=== PATIENT | male | born 1940 | race Caucasian/White ===

== ENCOUNTER 2017-04-22 10:36 | Emergency (ER) | payer MEDICAID, OTHER ==
[~2017-04-22] VITALS: Ht 185.4 cm; Wt 83.9 kg
[2017-04-22] MEDS ORDERED: SODIUM CHLORIDE 0.9% 1,000 ML IVB ONE (10:53)
[2017-04-22] MEDS ORDERED: MORPHINE SULFATE 4 MG/ML SYRG IV ONE (11:00)
[2017-04-22] MEDS ORDERED: ONDANSETRON HCL 4 MG/2 ML VIAL IV ONE ×3 (11:00→15:45)
[2017-04-22 11:10] LABS: CONDITION Y; Hemoglobin 15.2 g/dL (13.5-17.5); Mean Platelet Volume 8.1 fL (7.4-10.4); White Blood Cell 7.9 10^3/uL (4.4-10.8)
[2017-04-22 11:14] LABS: Basophils # (auto) 0 uL; Basophils % (auto) 0.3 % (0.0-2.0); Eosinophils # (auto) 0.2 uL; Eosinophils % (auto) 2.3 % (0.0-7.0); Lymphocytes # (auto) 1.8 uL; Lymphocytes % (auto) 22.9 % (10.0-50.0); Mean Corpuscular Hemoglobin 29.3 pg (28.0-32.0); Mean Corpuscular Hgb Conc. 33.7 g/dL (32.0-36.0); Mean Corpuscular Volume 87.1 fL (80.0-100.0); Monocytes # (auto) 0.5 uL; Monocytes % (auto) 6.2 % (0.0-12.0); Neutrophils # (auto) 5.4 uL; Neutrophils % (auto) 68.3 % (37.0-80.0); Platelet Count (auto) 208 10^3/uL (140-450); Red Cell Distribution Width 14.2 % (11.6-16.0)
[2017-04-22 11:33] LABS: Albumin 3.9 g/dL (3.4-5.0); Alkaline Phosphatase 101 U/L (45-117); Amylase 37 U/L (25-115); Anion Gap 10 (5-15); Aspartate Aminotransferase 22 U/L (15-37); BUN/Creatinine Ratio 22.9; Bilirubin, Total 0.5 mg/dL (0.2-1.0); Blood Urea Nitrogen 25 mg/dL (7-18); Calcium 9.1 mg/dL (8.5-10.1); Carbon Dioxide 21 mmol/L (21-32); Chloride 106 mmol/L (98-107); GFR African American 85 mL/min; GFR Non-African American 70 mL/min; Glucose 165 mg/dL (74-106); Potassium 4.2 mmol/L (3.5-5.1); Sodium 137 mmol/L (136-145); Total Protein 7.5 g/dL (6.4-8.2)
[2017-04-22] MEDS ORDERED: SODIUM CHLORIDE 0.9% 1,000 ML IV ONE ×2 (12:26)
[2017-04-22] MEDS ORDERED: ONDANSETRON HCL 4 MG/2 ML VIAL ONE ×2 (13:08→15:30)
[2017-04-22] MEDS ORDERED: KETOROLAC TROMETH 30 MG/ML 1ML VIAL ONE (13:08)
[2017-04-22] MEDS ORDERED: KETOROLAC TROMETH 30 MG/ML 1ML VIAL IV ONE (13:15)
[2017-04-22] MEDS ORDERED: HYDROmorphone HCL 2 MG/ML VL IV ONE ×2 (13:15→15:45)
[2017-04-22 13:49] LABS: Urine Bilirubin Negative (Negative); Urine Color Yellow (Yellow); Urine Glucose TRACE mg/dL (Normal); Urine Mucus FEW (None Seen); Urine Nitrite Negative (Negative); Urine RBC 219 /hpf (0 - 3); Urine Squamous Epithelial Cell FEW /hpf (<5); Urine Urobilinogen Normal (Negative)
[2017-04-22 13:50] LABS: Urine Blood 3+ /uL (Negative); Urine Ketone 1+ (Negative)
[2017-04-22 14:59] VITALS: BP 103/58
[2017-04-22] MEDS ORDERED: HYDROmorphone HCL 2 MG/ML VL ONE (15:30)
== END 2017-04-22 15:58 | disposition home or self-care (01) ==
LOC: ER 10:41
DX: N13.2 Hydronephrosis with renal and ureteral calculous obstruction (principal); E11.9 Type 2 diabetes mellitus without complications; Z90.49 Acquired absence of other specified parts of digestive tract
CPT/HCPCS: 36415; 74176; 80053; 81001; 82150; 83690; 84484; 85025; 93005; 96361; 96374; 96375; 96376; 99285; J1170; J1885; J2270; J2405; J7030

== ENCOUNTER 2021-01-20 19:51 | Emergency (ER) | payer OTHER ==
[~2021-01-20] VITALS: Ht 157.5 cm; Wt 95.3 kg
[2021-01-20] MEDS ORDERED: SODIUM CHLORIDE 0.9% 1,000 ML IV ONE (20:30)
[2021-01-20] MEDS ORDERED: ONDANSETRON HCL 4 MG/2 ML VIAL IV ONE (21:00)
[2021-01-20] MEDS ORDERED: fentaNYL CITRATE 100 MCG/2 ML VL IM ONE (21:00)
[2021-01-20] MEDS ORDERED: KETOROLAC TROMETH 30 MG/ML 1ML VIAL IV ONE (21:00)
[2021-01-20 21:50] LABS: Basophils # (auto) 0.1 10 ^3/uL (0-0.2); Basophils % (auto) 1.1 % (0.0-2.0); Eosinophils # (auto) 0.1 10 ^3/uL (0-0.8); Eosinophils % (auto) 1.3 % (0.0-7.0); Hematocrit 42.5 % (41.0-53.0); Hemoglobin 14.5 g/dL (13.5-17.5); Lymphocytes % (auto) 9.9 % (10.0-50.0); Mean Corpuscular Hemoglobin 29.6 pg (28.0-32.0); Mean Corpuscular Hgb Conc. 34.1 g/dL (32.0-36.0); Mean Corpuscular Volume 86.7 fL (80.0-100.0); Monocytes # (auto) 0.7 10 ^3/uL (0-1.3); Neutrophils # (auto) 8.3 10 ^3/uL (1.6-8.6); Neutrophils % (auto) 80.7 % (37.0-80.0); Nucleated Red Blood Cells % 0.1 %; Platelet Count (auto) 174 10^3/uL (140-450); Red Blood Cells 4.91 10^6/uL (4.5-5.90); Red Cell Distribution Width 14.9 % (11.8-14.3); White Blood Cell 10.2 10^3/uL (4.4-10.8)
[2021-01-20 22:03] LABS: Alanine Aminotransferase 44 U/L (16-61); Albumin 3.6 g/dL (3.4-5.0); Anion Gap 8 (5-15); Aspartate Aminotransferase 21 U/L (15-37); BUN/Creatinine Ratio 23.1; Blood Urea Nitrogen 21 mg/dL (7-18); Calcium 8.1 mg/dL (8.5-10.1); Carbon Dioxide 23 mmol/L (21-32); Chloride 109 mmol/L (98-107); GFR African American 104 mL/min; GFR Non-African American 86 mL/min; Glucose 111 mg/dL (74-106); Magnesium 2.1 mg/dL (1.6-2.6); Potassium 3.8 mmol/L (3.5-5.1); Sodium 140 mmol/L (136-145)
[2021-01-20 22:05] LABS: Urine Bacteria NONE SEEN /hpf (None Seen); Urine Blood 3+ /uL (Negative); Urine Specific Gravity 1.016 (1.001-1.035); Urine WBC 6 /hpf (0 - 3)
[2021-01-20 22:06] LABS: INR 1.05 (0.9-1.15)
[2021-01-20 22:07] LABS: Alkaline Phosphatase 95 U/L (45-117); Bilirubin, Total 0.4 mg/dL (0.2-1.0)
[2021-01-20 23:33] VITALS: BP 191/86
== END 2021-01-20 23:50 | disposition home or self-care (01) ==
LOC: ER 19:51 → EDBD 19:51 → ER 23:50
DX: N20.0 Calculus of kidney (principal); K40.90 Unilateral inguinal hernia, without obstruction or gangrene, not specified as recurrent; N13.4 Hydroureter; N04.9 Nephrotic syndrome with unspecified morphologic changes; E11.9 Type 2 diabetes mellitus without complications; E78.5 Hyperlipidemia, unspecified; F17.210 Nicotine dependence, cigarettes, uncomplicated; Z90.49 Acquired absence of other specified parts of digestive tract; Z88.6 Allergy status to analgesic agent
CPT/HCPCS: 36415; 74176; 80053; 81001; 83605; 83735; 84484; 85025; 85610; 96361; 96372; 96374; 96375; 99285; J1885; J2405; J3010; J7030; 93005

== ENCOUNTER 2021-04-21 18:00 | Emergency (ER) | payer OTHER ==
[~2021-04-21] VITALS: Ht 188 cm; Wt 90.7 kg
[2021-04-21] MEDS ORDERED: KETOROLAC TROMETH 30 MG/ML 1ML VIAL IV ONE (18:15)
[2021-04-21] MEDS ORDERED: SODIUM CHLORIDE 0.9% 1,000 ML IV ONE ×2 (18:15)
[2021-04-21 20:01] LABS: Urine Bacteria NONE SEEN /hpf (None Seen); Urine Blood 3+ /uL (Negative); Urine Specific Gravity 1.023 (1.001-1.035); Urine WBC 7 /hpf (0 - 3)
[2021-04-21 21:08] LABS: Basophils # (auto) 0.1 10 ^3/uL (0-0.2); Basophils % (auto) 0.5 % (0.0-2.0); Eosinophils # (auto) 0.1 10 ^3/uL (0-0.8); Eosinophils % (auto) 0.9 % (0.0-7.0); Hematocrit 39.7 % (41.0-53.0); Hemoglobin 13.5 g/dL (13.5-17.5); Lymphocytes % (auto) 8.4 % (10.0-50.0); Mean Corpuscular Hemoglobin 29.4 pg (28.0-32.0); Mean Corpuscular Hgb Conc. 34.1 g/dL (32.0-36.0); Mean Corpuscular Volume 86.3 fL (80.0-100.0); Monocytes % (auto) 8.4 % (0.0-12.0); Neutrophils # (auto) 9.4 10 ^3/uL (1.6-8.6); Neutrophils % (auto) 81.8 % (37.0-80.0); Red Blood Cells 4.61 10^6/uL (4.5-5.90); Red Cell Distribution Width 15.3 % (11.8-14.3); White Blood Cell 11.6 10^3/uL (4.4-10.8)
[2021-04-21 21:26] LABS: Calcium 7.5 mg/dL (8.5-10.1); Chloride 112 mmol/L (98-107); Potassium 3.8 mmol/L (3.5-5.1); Sodium 141 mmol/L (136-145)
[2021-04-21 21:30] LABS: Alanine Aminotransferase 33 U/L (16-61); Albumin 3.4 g/dL (3.4-5.0); Anion Gap 7 (5-15); Aspartate Aminotransferase 16 U/L (15-37); BUN/Creatinine Ratio 18.3; Blood Urea Nitrogen 20 mg/dL (7-18); Carbon Dioxide 22 mmol/L (21-32); GFR African American 84 mL/min; GFR Non-African American 70 mL/min; Glucose 111 mg/dL (74-106)
[2021-04-21 21:34] LABS: Alkaline Phosphatase 99 U/L (45-117); Bilirubin, Total 0.4 mg/dL (0.2-1.0); Total Protein 6.5 g/dL (6.4-8.2)
[2021-04-21] MEDS ORDERED: CALCIUM GLUC IV ONE (22:30)
[2021-04-21] MEDS ORDERED: [UNRECOGNIZED DRUG - OTHER] IV ONE (22:30)
[2021-04-21] MEDS ORDERED: CALCIUM GLUC 1,000mg/50ml-NS 100 ML IV ONE (23:32)
[2021-04-21] MEDS ORDERED: MORPHINE SULFATE 4 MG/ML SYR/VIAL IV ONE (23:45)
[2021-04-22] MEDS ORDERED: CALCIUM GLUC 1,000mg/50ml-NS 50 ML IV ONE ×2
[2021-04-22] MEDS ORDERED: MORPHINE SULFATE 4 MG/ML SYR/VIAL IV ONE ×3 (04:45→12:30)
[2021-04-22 12:04] VITALS: BP 148/76
[2021-04-22] MEDS ORDERED: MORPHINE SULFATE 4 MG/ML SYR/VIAL ONE (12:21)
[2021-04-22] MEDS ORDERED: ONDANSETRON HCL 4 MG/2 ML VIAL ONE (12:21)
[2021-04-22] MEDS ORDERED: ONDANSETRON HCL 4 MG/2 ML VIAL IM ONE (12:30)
== END 2021-04-22 12:25 | disposition home or self-care (01) ==
LOC: EDUNIT# 18:00 → ER 18:00 → EDBD 18:00 → ER 04-22 12:25
DX: N13.2 Hydronephrosis with renal and ureteral calculous obstruction (principal); E11.9 Type 2 diabetes mellitus without complications; E78.5 Hyperlipidemia, unspecified; F17.210 Nicotine dependence, cigarettes, uncomplicated; Z88.8 Allergy status to other drugs, medicaments and biological substances; Z90.89 Acquired absence of other organs; Z90.49 Acquired absence of other specified parts of digestive tract; Z20.822 Contact with and (suspected) exposure to COVID-19
CPT/HCPCS: 36415; 71045; 74176; 80053; 81001; 84484; 85025; 87426; 93005; 96361; 96365; 96366; 96375; 96376; 99285; J0610; J1885; J2270; J2405

== ENCOUNTER 2022-01-14 00:33 | Emergency (ER) | payer OTHER ==
[~2022-01-14] VITALS: Ht 188 cm; Wt 99.8 kg
[2022-01-14] MEDS ORDERED: MORPHINE SULFATE INJECTION 2 MG/ML SYRG IV ONE (03:00)
[2022-01-14] MEDS ORDERED: LACTATED RINGER'S 1,000 ML IV ONE (03:00)
[2022-01-14 03:03] LABS: Urine Bacteria NONE SEEN /hpf (None Seen); Urine Blood 1+ /uL (Negative); Urine Mucus FEW (None Seen); Urine Specific Gravity 1.022 (1.001-1.035); Urine WBC 1 /hpf (0 - 3)
[2022-01-14 06:01] LABS: Basophils # (auto) 0.1 10 ^3/uL (0-0.2); Basophils % (auto) 0.7 % (0.0-2.0); Eosinophils # (auto) 0.1 10 ^3/uL (0-0.8); Eosinophils % (auto) 1.1 % (0.0-7.0); Hematocrit 43.2 % (41.0-53.0); Hemoglobin 15.1 g/dL (13.5-17.5); Lymphocytes # (auto) 1.2 10 ^3/uL (0.4-5.4); Lymphocytes % (auto) 13.5 % (10.0-50.0); Mean Corpuscular Hemoglobin 30.3 pg (28.0-32.0); Mean Corpuscular Volume 86.7 fL (80.0-100.0); Monocytes # (auto) 0.9 10 ^3/uL (0-1.3); Monocytes % (auto) 9.8 % (0.0-12.0); Neutrophils # (auto) 6.5 10 ^3/uL (1.6-8.6); Neutrophils % (auto) 74.9 % (37.0-80.0); Nucleated Red Blood Cells % 0.1 %; Red Blood Cells 4.99 10^6/uL (4.5-5.90); Red Cell Distribution Width 14.9 % (11.8-14.3); White Blood Cell 8.7 10^3/uL (4.4-10.8)
[2022-01-14 06:18] LABS: Albumin 3.8 g/dL (3.4-5.0); Calcium 8.9 mg/dL (8.5-10.1); Potassium 4.3 mmol/L (3.5-5.1)
[2022-01-14 06:33] LABS: BUN/Creatinine Ratio 16.3; Bilirubin, Total 0.6 mg/dL (0.2-1.0)
[2022-01-14] MEDS ORDERED: KETOROLAC TROMETH 30 MG/ML 1ML VIAL IV ONE (08:45)
[2022-01-14] MEDS ORDERED: METOCLOPRAMIDE HCL 5MG/ml INJ 2ml VIAL IV ONE (08:45)
[2022-01-14] MEDS ORDERED: TAMSULOSIN HYDROCHLORIDE 0.4 MG CAP PO ONE (08:45)
[2022-01-14 11:00] VITALS: BP 149/77
== END 2022-01-14 11:12 | disposition home or self-care (01) ==
LOC: EDBD 00:33 → ER 00:35
DX: N20.0 Calculus of kidney (principal); N13.30 Unspecified hydronephrosis; E11.22 Type 2 diabetes mellitus with diabetic chronic kidney disease; N18.9 Chronic kidney disease, unspecified; E78.5 Hyperlipidemia, unspecified
CPT/HCPCS: 36415; 74176; 80053; 81001; 84484; 85025; 87426; 93005; 96361; 96374; 96375; 99285; J1885; J2270; J2765; J7030

== ENCOUNTER 2022-04-07 15:13 | Emergency (ER) | payer OTHER ==
[~2022-04-07] VITALS: Ht 190.5 cm; Wt 90.7 kg
[2022-04-07] MEDS ORDERED: KETOROLAC TROMETH 30 MG/ML 1ML VIAL IV ONE (15:45)
[2022-04-07] MEDS ORDERED: TAMSULOSIN HYDROCHLORIDE 0.4 MG CAP PO ONE (15:45)
[2022-04-07] MEDS ORDERED: SODIUM CHLORIDE 0.9% 1,000 ML IV ONE (15:45)
[2022-04-07] MEDS ORDERED: cefTRIAXone 1GM/50ML D5W 50 ML IV ONE (16:30)
[2022-04-07] MEDS ORDERED: AZITHROMYCIN 500MG/ 250ML 250 ML IV ONE (16:30)
[2022-04-07] MEDS ORDERED: LEVO-28 PO (16:31)
[2022-04-07] MEDS ORDERED: TAM04C PO (16:31)
[2022-04-07 16:32] LABS: Basophils # (auto) 0 10 ^3/uL (0-0.2); Basophils % (auto) 0.5 % (0.0-2.0); Eosinophils # (auto) 0 10 ^3/uL (0-0.8); Eosinophils % (auto) 0.3 % (0.0-7.0); Hemoglobin 15.3 g/dL (13.5-17.5); Lymphocytes # (auto) 0.6 10 ^3/uL (0.4-5.4); Lymphocytes % (auto) 6.3 % (10.0-50.0); Mean Corpuscular Hgb Conc. 33.1 g/dL (32.0-36.0); Mean Corpuscular Volume 87.4 fL (80.0-100.0); Monocytes # (auto) 0.8 10 ^3/uL (0-1.3); Monocytes % (auto) 8.4 % (0.0-12.0); Neutrophils # (auto) 8.4 10 ^3/uL (1.6-8.6); Neutrophils % (auto) 84.5 % (37.0-80.0); Red Blood Cells 5.27 10^6/uL (4.5-5.90); Red Cell Distribution Width 14.5 % (11.8-14.3); White Blood Cell 9.9 10^3/uL (4.4-10.8)
[2022-04-07 16:52] LABS: Albumin 3.8 g/dL (3.4-5.0); Calcium 8.5 mg/dL (8.5-10.1)
[2022-04-07 16:57] LABS: BUN/Creatinine Ratio 13.1; Bilirubin, Total 0.9 mg/dL (0.2-1.0); Total Protein 7.2 g/dL (6.4-8.2)
[2022-04-07 18:13] VITALS: BP 119/68
== END 2022-04-07 18:05 | disposition home or self-care (01) ==
LOC: ER 15:13
DX: N20.0 Calculus of kidney (principal); E11.9 Type 2 diabetes mellitus without complications; E03.9 Hypothyroidism, unspecified; E78.5 Hyperlipidemia, unspecified; F17.210 Nicotine dependence, cigarettes, uncomplicated; Z90.49 Acquired absence of other specified parts of digestive tract; Z79.899 Other long term (current) drug therapy; Z88.8 Allergy status to other drugs, medicaments and biological substances
CPT/HCPCS: 36415; 74176; 80053; 83690; 84484; 85025; 93005

== ENCOUNTER 2023-05-18 07:02 | Emergency (ER) | payer OTHER ==
[~2023-05-18] VITALS: Ht 188 cm; Wt 90.9 kg
[~2023-05-18 07:02] MED LIST: LEVO500T91 PO; TAMS-35 PO
[2023-05-18 07:37] LABS: Basophils # (auto) 0.1 10 ^3/uL (0-0.2); Eosinophils # (auto) 0.2 10 ^3/uL (0-0.8); Eosinophils % (auto) 3.2 % (0.0-7.0); Hematocrit 45.2 % (41.0-53.0); Hemoglobin 15.2 g/dL (13.5-17.5); Lymphocytes # (auto) 1.4 10 ^3/uL (0.4-5.4); Lymphocytes % (auto) 20.5 % (10.0-50.0); Mean Corpuscular Hemoglobin 29.8 pg (28.0-32.0); Mean Corpuscular Hgb Conc. 33.5 g/dL (32.0-36.0); Mean Corpuscular Volume 88.8 fL (80.0-100.0); Monocytes # (auto) 0.6 10 ^3/uL (0-1.3); Monocytes % (auto) 8.9 % (0.0-12.0); Neutrophils # (auto) 4.5 10 ^3/uL (1.6-8.6); Neutrophils % (auto) 66.4 % (37.0-80.0); Red Blood Cells 5.09 10^6/uL (4.5-5.90); Red Cell Distribution Width 14.9 % (11.8-14.3); White Blood Cell 6.7 10^3/uL (4.4-10.8)
[2023-05-18 08:01] LABS: Albumin 3.9 g/dL (3.4-5.0); Calcium 8.6 mg/dL (8.5-10.1); Magnesium 2.4 mg/dL (1.6-2.6); Potassium 4.5 mmol/L (3.5-5.1)
[2023-05-18 08:05] LABS: BUN/Creatinine Ratio 16.2 (10.0-20.0); Bilirubin, Total 0.6 mg/dL (0.2-1.0); Total Protein 7.1 g/dL (6.4-8.2)
[2023-05-18] MEDS ORDERED: IOHEXOL 350 MG/ML 100ML IJ ONE (10:14)
[2023-05-18 10:27] VITALS: TEMP 98.1
[2023-05-18 10:28] VITALS: PULSE 63; RESP 13; O2SAT 99
[2023-05-18] MEDS ORDERED: IBUP1TAB4 PO (13:04)
[2023-05-18] MEDS ORDERED: BACLOFEN 10 MG TAB PO ONE (13:45)
[2023-05-18] MEDS ORDERED: LIDOCAINE VISCOUS 2% 15ML UD MT ONE (13:45)
[2023-05-18] MEDS ORDERED: MAALOX PLUS or MAALOX 30 ML PO ONE (13:45)
[2023-05-18 15:48] VITALS: BP 158/78; PULSE 62; RESP 11; O2SAT 96
== END 2023-05-18 13:19 | disposition home or self-care (01) ==
LOC: ER 07:02 → EDBD 07:02 → ER 13:19
DX: R07.89 Other chest pain (principal); M54.59 Other low back pain; E11.9 Type 2 diabetes mellitus without complications; E78.5 Hyperlipidemia, unspecified; I10 Essential (primary) hypertension; F17.210 Nicotine dependence, cigarettes, uncomplicated; Z88.8 Allergy status to other drugs, medicaments and biological substances; Z79.899 Other long term (current) drug therapy; Z87.442 Personal history of urinary calculi; Z90.49 Acquired absence of other specified parts of digestive tract
CPT/HCPCS: 36415; 71045; 71260; 74177; 80053; 83735; 84484; 85025; 93005; 99285; Q9967

== ENCOUNTER 2024-11-26 10:43 | Emergency (ER) | payer OTHER ==
[~2024-11-26] VITALS: Ht 188 cm; Wt 90.0 kg
[~2024-11-26 10:43] MED LIST changes: +IBUP1TAB4 PO
--- NOTE | 2024-11-26 11:01 | ED.PDOC ---
History of Present Illness HPI Comments 84-year-old male who comes in with chief complaint of status post fall on the left hip. The patient states that the pain is a 10/10. The patient was in the restroom when he fell down. The patient was obvious rotation of the left hip. 911 was called and the patient was transported to our facility. The patient initially was given ketamine for the pain but after the 2nd dose of ketamine the patient's seems to be experiencing more pain. The patient denies any other complaints except for some chest pain. Chief Complaint: Fall Injury Time Seen by MD: 10:47 Primary Care Provider: BRIAN LIZAMA Reviewed Notes: Nurses Notes, Senior Structural Engineer Notes, Medications, Allergies (Allergies listed above) Allergies: Coded Allergies: Diphenhydramine (Verified Allergy, Unknown, 01/20/21) Home Meds Active Scripts Ibuprofen Micronized (Ibuprofen) 400 Mg Tab, 400 MG PO [id number] PRN for 4 Days, #8 TAB Prov:AYDIN NAIDU MD 05/18/23 Tamsulosin Hcl (Flomax) 0.4 Mg Cap, 1 CAP PO DAILY for 7 Days, #10 CAP 11 Refills Prov:BUCK JEFF MD 04/07/22 Levofloxacin Hemihydrate (LEVOFLOXACIN) 500 Mg Tab, 1 TAB PO DAILY for 7 Days, #7 TAB Prov:BUCK JEFF MD 04/07/22 Information Source: Patient, Emergency Med Personnel Mode of Arrival: EMS Severity: Severe Timing: Hours Duration: Since onset 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: 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, IVF, Other (Patient was given ketamine for the pain) Location: Left hip pain with obvious rotation Past Medical History PAST MEDICAL HISTORY: DM, High Lipids, HTN, Kidney Stones, Thyroid Surgical History: Appendectomy, Cholecystectomy Family History Family History: Unknown Social History Smoker: Cigarettes, Less Than 1 Pack/Day Alcohol: Denies ETOH Use Drugs: Denies Drug Use Lives In: Home Constitutional: denies: chills, diaphoresis, fatigue, fever, malaise, sweats, weakness, others EENTM: denies: blurred vision, double vision, ear bleeding, ear discharge, ear drainage, ear pain, ear ringing, eye pain, eye redness, hearing loss, mouth pain, mouth swelling, nasal discharge, nose bleeding, nose congestion, nose pain, photophobia, tearing, throat pain, throat swelling, voice changes, others Cardiovascular: denies: chest pain, dizzy spells, diaphoresis, Dyspnea on exertion, edema, irregular heart beat, left arm pain, lightheadedness, palpit ations, PND, syncope, others Gastrointestinal: denies: abdomen distended, abdominal pain, blood streaked b owels, constipated, diarrhea, dysphagia, difficulty swallowing, hematemesis, melena, nausea, poor appetite, poor fluid intake, rectal bleeding, rectal pain, vomiting, others Genitourinary: denies: burning, dysuria, flank pain, frequency, hematuria, incontinence, penile discharge, penile sore, pain, testicle pain, testicle swelling, urgency, others Neurological: denies: dizziness, fainting, headache, left sided numbness, left sided weakness, numbness, paresthesia, pre-existing deficit, right sided numbness, right sided weakness, seizure, speech problems, tingling, tremors, weakness, others Musculoskeletal: reports: others (Left hip pain with obvious rotation); denies: back pain, gout, joint pain, joint swelling, muscle pain, muscle stiffness, neck pain Integumetry: denies: bruises, change in color, change in hair/nails, dryness, laceration, lesions, lumps, rash, wounds, others Allergic/Immunocompromised: denies: Difficulty Healing, Frequent Infections, Hives, Itching, others Hematologic/Lymphatic: denies: anemia, blood clots, easy bleeding, easy bruising, swollen glands, others Endocrine: denies: excessive hunger, excessive sweating, excessive thirst, excessive urination, flushing, intolerance to cold, intolerance to heat, unexplained weight gain, unexplained weight loss, others Psychiatric: denies: anxiety, bipolar disorder, depression, hopeless, panic disorder, schizophrenia, sleepless, suicidal, others Physical Exam General Appearance: Moderate Distress HEENT: Normal ENT Inspection, Pharynx Normal, TMs Normal Neck: Full Range of Motion, Non-Tender, Normal, Normal Inspection Respiratory: Chest Non-Tender, Lungs Clear, No Accessory Muscle Use, No Respiratory Distress, Normal Breath Sounds Cardiovascular: No Edema, No JVD, No Murmur, No Gallop, Normal Peripheral Pulses, Regular Rate/Rhythm Breast Exam: Deferred Gastrointestinal: No Organomegaly, Non Tender, No Pulsatile Mass, Normal Bowel Sounds, Soft Genitalia: Deferred Pelvic: Deferred Rectal: Deferred Extremities: No calf tenderness, Normal capillary refill, Normal inspection, Normal range of motion, Non-tender, No pedal edema Musculoskeletal : Location: Left Extremity Location: Hip Apperance: Deformity, Limited ROM, Tenderness: Severe Neurologic: Alert, optometric coordinator II-XII nml as Tested, No Motor Deficits, Normal Affect, Normal Mood, No Sensory Deficits Cerebellar Function: Normal Reflexes: Normal Skin: Dry, Normal Color, Warm Lymphatic: No Adenopathy Was a procedure done? Was a procedure done?: No Differential Dx Considerations may include: Fracture, strain, dislocation X-Ray, Labs, Meds, VS Vital Signs Date Time Temp Pulse Resp B/P (MAP) Pulse Ox O2 Delivery O2 Flow Rate FiO2 11/26/24 12:46 90 20 98 Nasal Cannula* 2 28 11/26/24 12:45 98.2 90 18 172/80 (110) 98 98.2 11/26/24 12:14 60 18 130/75 11/26/24 11:31 90 20 180/85 11/26/24 10:49 98.4 76 18 201/99 (133) 99 Lab Test 11/26/24 11:55 Range/Units White Blood Count 7.6 4.4-10.8 10^3/uL Red Blood Count 5.03 4.5-5.90 10^6/uL Hemoglobin 15.4 13.5-17.5 g/dL Hematocrit 44.2 41.0-53.0 % Mean Corpuscular Volume 87.9 80.0-100.0 fL Mean Corpuscular Hemoglobin 30.5 28.0-32.0 pg Mean Corpuscular Hemoglobin Concent 34.7 32.0-36.0 g/dL Red Cell Distribution Width 15.4 H 11.8-14.3 % Platelet Count 159 140-450 10^3/uL Mean Platelet Volume 7.9 6.9-10.8 fL Neutrophils (%) (Auto) 82.3 H 37.0-80.0 % Lymphocytes (%) (Auto) 9.8 L 10.0-50.0 % Monocytes (%) (Auto) 6.1 0.0-12.0 % Eosinophils (%) (Auto) 0.8 0.0-7.0 % Basophils (%) (Auto) 1.0 0.0-2.0 % Neutrophils # (Auto) 6.3 1.6-8.6 10 ^3/uL Lymphocytes # (Auto) 0.7 0.4-5.4 10 ^3/uL Monocytes # (Auto) 0.5 0-1.3 10 ^3/uL Eosinophils # (Auto) 0.1 0-0.8 10 ^3/uL Basophils # (Auto) 0.1 0-0.2 10 ^3/uL Nucleated Red Blood Cells 0.0 % Prothrombin Time 11.1 9.3-11.8 sec Prothrombin Time INR 1.05 0.9-1.15 Activated Partial Thromboplast Time 28.2 24.5-34.5 SEC Sodium Level 140 136-145 mmol/L Potassium Level 4.2 3.5-5.1 mmol/L Chloride Level 107 98-107 mmol/L Carbon Dioxide Level 26 20-31 mmol/L Anion Gap 7 5-15 Blood Urea Nitrogen 17 9-23 mg/dL Creatinine 1.12 0.700-1.30 mg/dL Glomerular Filtration Rate Calc 66 >90 mL/min BUN/Creatinine Ratio 15.2 10.0-20.0 Serum Glucose 148 H 74-106 mg/dL Calcium Level 9.7 8.7-10.4 mg/dL Current Medications Medications (Trade) Dose Ordered Sig/Bernadette Route Start Time Stop Time Status Last Admin Morphine Sulfate 4 mg ONCE ONCE IV 11/26/24 11:00 11/26/24 11:01 DC 11/26/24 11:31 Ondansetron HCl (Zofran) 4 mg ONCE ONCE IV 11/26/24 11:00 11/26/24 11:01 DC 11/26/24 11:31 TECHNIQUE: XY L HIP COMPLETE XRAY FINDINGS/IMPRESSION: : Mildly displaced and impacted intertrochanteric fracture of the left hip. Moderate degenerative changes of bilateral hips. Diffuse osteopenia. CHEST RADIOGRAPH IMPRESSION: Pulmonary vascular congestion IV Hep-Lock was established. The patient was being given morphine 4 mg IV push for the pain The patient was given Zofran 4 mg IV push for the nausea We did speak with [facility] and went over the case with them. The patient's CBC and chemistry panel are within normal limits The patient was alert and able to answer questions appropriately The patient states that the pain medication did help at this time The authorization #[id number] The patient is being transferred to their facility at this time. Images Reviewed?: Images reviewed and evaluated by me Time of 1ST Reevaluation: 11:00 Reevaluation 1ST: Unchanged Patient Education/Counseling: Diagnosis, Treatment, Prognosis Family Education/Counseling: No Family Present Departure 1 Departure Time of Disposition: 13:41 Impression: Primary Impression: Closed left hip fracture Qualified Codes: S72.002A - Fracture of unspecified part of neck of left femur, initial encounter for closed fracture Additional Impression: History of fall Disposition: 51 HOSPICE/MEDICAL FACILITY Condition: Fair Critical Care Note Critical Care Time?: Yes (45 min-critical care time only) Stability Stability form required: Yes Stable for transfer: Intended for transfer (Health plan request transfer), To designated facility Heart Score Heart Score: Heart Score Response (Comments) Value History N/A 0 EKG N/A 0 Age N/A 0 Risk Factors N/A 0 Troponin N/A 0 Total 0 I personally scribed for LIGIA BOWENS MD ([email or web address]) on 11/26/24 at 11:38. Electronically submitted by Summer Saldaña ([email or web address]). I personally scribed for LIGIA BOWENS MD ([email or web address]) on 11/26/24 at 11:39. Electronically submitted by Summer Saldaña ([email or web address]). LIGIA BOWENS MD Nov 26, 2024 11:00
[2024-11-26] MEDS: MORPHINE SULFATE 4 MG/ML SYR/VIAL IV ONE ×3 (11:31→19:38)
[2024-11-26] MEDS: ONDANSETRON HCL 4 MG/2 ML VIAL IV ONE ×2 (11:31→15:23)
--- NOTE | 2024-11-26 11:35 | DVH ---
CLINICAL INDICATION: Trauma, pain FALL TECHNIQUE: XY L HIP COMPLETE XRAY Comparison: None FINDINGS/IMPRESSION: : Mildly displaced and impacted intertrochanteric fracture of the left hip. Moderate degenerative changes of bilateral hips. Diffuse osteopenia.
--- NOTE | 2024-11-26 11:35 | DVH ---
CHEST RADIOGRAPH Indication: FALL, trauma, pain Technique: Single frontal view of the chest was obtained COMPARISON: XY CHEST PORTABLE on DOS: 05/18/23, CHEST PORTABLE on DOS: 04/21/21 FINDINGS: Lines and Tubes: None Lungs: Pulmonary vascular congestion Pleura: No effusion. No pneumothorax. Cardiomediastinal contours: Unremarkable Bones: Unremarkable IMPRESSION: Pulmonary vascular congestion
[2024-11-26 12:25] LABS: Basophils # (auto) 0.1 10 ^3/uL (0-0.2); Eosinophils # (auto) 0.1 10 ^3/uL (0-0.8); Eosinophils % (auto) 0.8 % (0.0-7.0); Hematocrit 44.2 % (41.0-53.0); Hemoglobin 15.4 g/dL (13.5-17.5); Lymphocytes # (auto) 0.7 10 ^3/uL (0.4-5.4); Lymphocytes % (auto) 9.8 % (10.0-50.0); Mean Corpuscular Hemoglobin 30.5 pg (28.0-32.0); Mean Corpuscular Hgb Conc. 34.7 g/dL (32.0-36.0); Mean Corpuscular Volume 87.9 fL (80.0-100.0); Monocytes # (auto) 0.5 10 ^3/uL (0-1.3); Monocytes % (auto) 6.1 % (0.0-12.0); Neutrophils # (auto) 6.3 10 ^3/uL (1.6-8.6); Neutrophils % (auto) 82.3 % (37.0-80.0); Platelet Count (auto) 159 10^3/uL (140-450); Red Blood Cells 5.03 10^6/uL (4.5-5.90); Red Cell Distribution Width 15.4 % (11.8-14.3); White Blood Cell 7.6 10^3/uL (4.4-10.8)
[2024-11-26 12:36] LABS: Potassium 4.2 mmol/L (3.5-5.1); Sodium 140 mmol/L (136-145)
[2024-11-26 12:37] LABS: Anion Gap 7 (5-15); Carbon Dioxide 26 mmol/L (20-31)
[2024-11-26 12:38] LABS: Calcium 9.7 mg/dL (8.7-10.4)
[2024-11-26 12:42] LABS: BUN/Creatinine Ratio 15.2 (10.0-20.0); Blood Urea Nitrogen 17 mg/dL (9-23)
[2024-11-26 12:46] VITALS: PULSE 90; RESP 20; O2SAT 98
[2024-11-26 12:47] LABS: INR 1.05 (0.9-1.15); Partial Thromboplastin Time 28.2 SEC (24.5-34.5); Prothrombin Time 11.1 sec (9.3-11.8)
[2024-11-26 12:48] LABS: Chloride 107 mmol/L (98-107); Glucose 148 mg/dL (74-106)
--- NOTE | 2024-11-26 15:07 | ECG ---
[facility] Test Date: 2024-11-26 Test Time: 14:52:12 Pat Name: ROXY BRODERICK Department: ER Room: Gender: M Ladies Attendant: [place] : 1940 Requested By: LIGIA BOWENS Order Number: [id number] Reading MD: Kyle Greene Measurements Intervals [place] Rate: 67 P: 10 MO: 110 QRS: 50 QRSD: 101 T: 62 QT: 446 QTc: 471 Interpretive Statements Sinus rhythm Borderline short MO interval Electronically Signed On 11-26-2024 22:29:45 PST by Kyle Greene Please click the below link to view image of tracing.
[2024-11-26 19:19] VITALS: PULSE 99; RESP 22; O2SAT 98
[2024-11-26 19:36] VITALS: TEMP 97.5; O2SAT 96
[2024-11-26 19:38] VITALS: BP 178/82; PULSE 91; RESP 22
[2024-11-26] MEDS: ONDANSETRON HCL 4 MG/2 ML VIAL IM ONE (19:38)
== END 2024-11-26 14:00 | disposition short-term general hospital (02) ==
LOC: EDBD 10:43 → ER 10:43
DX: S72.142A Displaced intertrochanteric fracture of left femur, initial encounter for closed fracture (principal); I10 Essential (primary) hypertension; F17.210 Nicotine dependence, cigarettes, uncomplicated; E11.9 Type 2 diabetes mellitus without complications; Z90.49 Acquired absence of other specified parts of digestive tract; W10.8XXA Fall (on) (from) other stairs and steps, initial encounter; Y93.89 Activity, other specified; Y92.89 Other specified places as the place of occurrence of the external cause; Y99.8 Other external cause status
CPT/HCPCS: 36415; 71045; 73502; 80048; 85025; 85610; 85730; 93005; 96372; 96374; 96375; 96376; 99285; J2270; J2405